=== PATIENT | female | born 1990 | race African-American/Black ===

== ENCOUNTER 2016-08-05 14:30 | Inpatient (IN) | payer OTHER ==
[2016-08-06 14:27] VITALS: BMI 32.2
[2016-08-06] MEDS ORDERED: CITRIC ACID/SODIUM CITRATE 30 ML UNIT-DOSE CUP PO ONE (15:00)
[2016-08-06] MEDS ORDERED: ELECTROLYTE-148 SOLN 1,000 ML IV ONE (15:00)
[2016-08-06] MEDS ORDERED: ONDANSETRON 4 MG/2 ML VIAL IVPB PRN (15:28)
[2016-08-06] MEDS ORDERED: morphine SULFATE/Preservative Free 0.5 MG/ML (1cc Syringe) EP ONE (15:28)
[2016-08-06] MEDS ORDERED: IBUPROFEN 600 MG TABLET (FP) PO PRN (15:28)
--- NOTE | 2016-08-06 15:40 | HP ---
Past Medical History - Primary Care Physician PCP:: Anson Panda - Admission Chief Complaint: 39 weeks, previous c/s of unknwon type , for repeat c /s History of Present Illness: 26 yo f , edc by sono 08/07/16 with previous c/s of unknown type, admitted for repeat c/s rislk of c/s, discussed History Source: Patient Limitations to Obtaining History: No Limitations - Past Medical History ...: 2 ...Para: 1 ...Term: 1 ...LMP: 11/01/15 ... Weeks Gestation by Dates: 39.6 ...EDC by Dates: 08/07/16 ...EDC by Sono: 08/06/16 - Past Surgical History Past Surgical History: Yes: Hx Myomectomy: No Hx Transabdominal Cerclage: No - Smoking History Smoking history: Never smoked Have you smoked in the past 12 months: No - Alcohol/Substance Use Hx Alcohol Use: No - Social History Usual Living Arrangement: Yes: With Spouse History of Recent Travel: No Home Medications - Allergies Allergies/Adverse Reactions: Allergies Allergy/AdvReac Type Severity Reaction Status Date / Time No Known Allergies Allergy Verified 08/06/16 14:30 - Home Medications Home Medications: Ambulatory Orders Vit/Iron Fumarate/FA [ Tablet] 1 each PO DAILY 08/06/16 Review of Systems - Review of Systems Constitutional: reports: No Symptoms Eyes: reports: No Symptoms HENT: reports: No Symptoms Neck: reports: No Symptoms Cardiovascular: reports: No Symptoms Respiratory: reports: No Symptoms Gastrointestinal: reports: No Symptoms Genitourinary: reports: No Symptoms Breasts: reports: No Symptoms Reported Musculoskeletal: reports: No Symptoms Integumentary: reports: No Symptoms Neurological: reports: No Symptoms Endocrine: reports: No Symptoms Hematology/Lymphatic: reports: No Symptoms Psychiatric: reports: No Symptoms Physical Exam - Maternity Vital Signs: Vital Signs Temperature 98.0 F 08/06/16 14:20 Pulse Rate 82 08/06/16 14:20 Respiratory Rate 18 08/06/16 14:20 Blood Pressure 127/80 08/06/16 14:20 O2 Sat by Pulse Oximetry (%) Constitutional: Yes: Well Nourished, No Distress, Calm Eyes: Yes: WNL, Conjunctiva Clear, EOM Intact HENT: Yes: WNL, Atraumatic, Normocephalic Neck: Yes: WNL, Supple, Trachea Midline Cardiovascular: Yes: WNL, Regular Rate and Rhythm Breast(s): Yes: WNL - Abdominal Exam/OB Fundal Height: 40 Number of Fetuses: Single Presentation: Vertex Contractions: Yes Regularity: Irregular Intensity: Unaware Monitor Mode: External Heart Rate Location: [facility] Category: I Accelerations: Uniform Decelerations: None - Vaginal Exam/OB Vaginal Bleediing: No Speculum Exam: No Dilatation (cm): closed Effacement (%): 0 Amniotic Membrane Status: Intact Presentation: Vertex/Position Station: -3 - Physical Exam Musculoskeletal: Yes: WNL Extremities: Yes: WNL Edema: LLE: Trace, RLE: Trace Deep Tendon Reflex Grade: Normal +2 ...Motor Strength: WNL Psychiatric: Yes: WNL Hemorrhage Risk Assessment - Risk Factors Medium Risk Factors: Yes: Prior , uterine surgery,or multiple laparotomies Risk Score: 1 Risk Level: Medium Risk Problem List - Problems (1) with 39 completed weeks gestation Code(s): Z3A.39 - 39 WEEKS GESTATION OF (2) Previous delivery affecting , antepartum Code(s): O34.21 - MATERNAL CARE FOR SCAR FROM PREVIOUS * DO NOT USE * Assessment/Plan repeat c/s , rba discussed
[2016-08-06] MEDS ORDERED: IBUPROFEN 800 MG/8 ML IJ IVPB PRN (16:22)
[2016-08-06] MEDS ORDERED: WITCH HAZEL 50% (TUCKS) 40 PAD/JAR PAD TP PRN (16:22)
[2016-08-06] MEDS ORDERED: METHYLERGONOVINE MALEATE 0.2 MG/1 ML AMP IM PRN (16:22)
[2016-08-06] MEDS ORDERED: BENZOCAINE 20% 57 GM BOTTLE TP PRN (16:22)
[2016-08-06] MEDS ORDERED: diphenhydrAMINE HCL 25 MG CAPSULE (FP) PO PRN (16:22)
[2016-08-06] MEDS ORDERED: BENZOCAINE 28 GM HEMORRHOIDAL OINTMENT PR PRN (16:22)
[2016-08-06] MEDS ORDERED: oxyCODONE HCL 5 MG TABLET PO PRN (16:22)
[2016-08-06] MEDS ORDERED: DEXTROSE 5%-LACTATED RINGERS 1,000 ML IV SCH (16:30)
[2016-08-06] MEDS: OXYTOCIN 20 UNITS in 0.9% NS 1,000 ML IV SCH ×2 (17:00→23:18)
[2016-08-06] MEDS ORDERED: CEFAZOLIN (PRE-DOCKED) 50 ML IVPB SCH (18:00)
[2016-08-06] MEDS: CEFAZOLIN (PRE-DOCKED) 50 ML IVPB SCH (23:12)
[2016-08-07] MEDS: CEFAZOLIN (PRE-DOCKED) 50 ML IVPB SCH (06:32)
[2016-08-07 08:40] LABS: BASOPHIL 0.7 % (0-2.0); EOSINOPHIL 0.2 % (0-4.5); MCH 29.8 pg (25.7-33.7); MCHC 33.9 g/dl (32.0-36.0); MEAN CELL VOLUME 87.7 fl (80-96); MEAN PLT VOLUME 8.4 fl (7.5-11.1); NEUTROPHILS 69.9 % (42.8-82.8); PLATELET COUNT 191 K/MM3 (134-434); RDW 17.2 % (11.6-15.6); WHITE BLOOD COUNT 9.3 K/mm3 (4.0-10.0)
[2016-08-07] MEDS: ENOXAPARIN NA (PORCINE) 40 MG/0.4 ML DISP.SYRIN SQ SCH (09:04)
[2016-08-07] MEDS: SIMETHICONE 80 MG TAB.CHEW (FP) PO PRN ×3 (09:40→21:30)
[2016-08-07] MEDS: ACETAMINOPHEN 325 MG TABLET (FP) PO PRN ×3 (09:40→21:21)
[2016-08-07] MEDS: oxyCODONE HCL 5 MG TABLET PO PRN ×3 (09:41→21:22)
--- NOTE | 2016-08-07 10:32 | PN ---
Post Progress Note - Subjective Subjective: no c/o pain solano removed, not voided yet Post Day: 1 Type of Delivery: Repeat C/S Vital Signs: Vital Signs Temperature 98.7 F 08/07/16 06:00 Pulse Rate 92 H 08/07/16 06:00 Respiratory Rate 20 08/07/16 07:00 Blood Pressure 98/56 08/07/16 06:00 O2 Sat by Pulse Oximetry (%) 99 08/06/16 16:50 Breast Exam: Yes: Soft, Other (BF ). No: Engorged Uterus: Yes: Fundus Firm, Fundus below umbilicus, Non-tender Incision: Yes: Dressing dry and intact. No: Redness, Oozing Abdomen/GI: Yes: Abdomen soft, Tolerating PO (clear liquids ). No: Abdominal Distention, Tender, Passing flatus Lochia, amount: Moderate Extremities: Yes: Calves non-tender Perineum: Yes: Intact Activity: Other (sitting in chair ) - Labs Labs: CBC WBC 9.3 K/mm3 (4.0-10.0) D 08/07/16 07:30 RBC 4.04 M/mm3 (3.60-5.2) 08/07/16 07:30 Hgb 12.0 GM/dL (10.7-15.3) 08/07/16 07:30 Hct 35.5 % (32.4-45.2) 08/07/16 07:30 MCV 87.7 fl (80-96) 08/07/16 07:30 MCHC 33.9 g/dl (32.0-36.0) 08/07/16 07:30 RDW 17.2 % (11.6-15.6) H 08/07/16 07:30 Plt Count 191 K/MM3 (134-434) 08/07/16 07:30 MPV 8.4 fl (7.5-11.1) 08/07/16 07:30 Neutrophils % 69.9 % (42.8-82.8) 08/07/16 07:30 Lymphocytes % 20.7 % (8-40) D 08/07/16 07:30 Monocytes % 8.5 % (3.8-10.2) 08/07/16 07:30 Eosinophils % 0.2 % (0-4.5) 08/07/16 07:30 Basophils % 0.7 % (0-2.0) 08/07/16 07:30 Assessment/Plan stable. . encourage ambulation & po fluids
--- NOTE | 2016-08-07 11:04 | PN ---
Progress Note (short form) - Note Progress Note: POD #1 - s/p under spinal anesthesia with duramorph. Pt. doing well, sitting up comfortably in chair nursing baby. No complaints. Good pain control. No apparent anesthetic complications noted. Continue current care.
[2016-08-07] MEDS ORDERED: BISACODYL 10 MG SUPP.RECT RC PRN (16:22)
[2016-08-08] MEDS: SIMETHICONE 80 MG TAB.CHEW (FP) PO PRN ×3 (04:43→21:30)
[2016-08-08] MEDS: ACETAMINOPHEN 325 MG TABLET (FP) PO PRN ×3 (04:43→21:30)
[2016-08-08] MEDS: oxyCODONE HCL 5 MG TABLET PO PRN ×3 (04:44→21:31)
[2016-08-08] MEDS: ENOXAPARIN NA (PORCINE) 40 MG/0.4 ML DISP.SYRIN SQ SCH (09:08)
--- NOTE | 2016-08-08 12:47 | PN ---
Post Progress Note - Subjective Subjective: no complains . voiding without dificulty Post Day: 2 Type of Delivery: Repeat C/S Vital Signs: Vital Signs Temperature 97.9 F 08/08/16 09:24 Pulse Rate 75 08/08/16 09:24 Respiratory Rate 18 08/08/16 09:24 Blood Pressure 102/55 08/08/16 09:24 O2 Sat by Pulse Oximetry (%) 99 08/08/16 09:00 Breast Exam: Yes: Soft, Other (BF ). No: Engorged Uterus: Yes: Fundus Firm, Fundus below umbilicus, Non-tender Incision: Yes: Dressing dry and intact (to be changed ). No: Redness, Oozing Abdomen/GI: Yes: Abdomen soft, Passing flatus, Tolerating PO (diet). No: Abdominal Distention, Tender Lochia: Yes: Rubra Lochia, amount: Moderate Extremities: Yes: Calves non-tender Perineum: Yes: Intact Activity: Ambulating - Labs Labs: CBC WBC 9.3 K/mm3 (4.0-10.0) D 08/07/16 07:30 RBC 4.04 M/mm3 (3.60-5.2) 08/07/16 07:30 Hgb 12.0 GM/dL (10.7-15.3) 08/07/16 07:30 Hct 35.5 % (32.4-45.2) 08/07/16 07:30 MCV 87.7 fl (80-96) 08/07/16 07:30 MCHC 33.9 g/dl (32.0-36.0) 08/07/16 07:30 RDW 17.2 % (11.6-15.6) H 08/07/16 07:30 Plt Count 191 K/MM3 (134-434) 08/07/16 07:30 MPV 8.4 fl (7.5-11.1) 08/07/16 07:30 Neutrophils % 69.9 % (42.8-82.8) 08/07/16 07:30 Lymphocytes % 20.7 % (8-40) D 08/07/16 07:30 Monocytes % 8.5 % (3.8-10.2) 08/07/16 07:30 Eosinophils % 0.2 % (0-4.5) 08/07/16 07:30 Basophils % 0.7 % (0-2.0) 08/07/16 07:30 Assessment/Plan stable. plan ct po care
[2016-08-08] MEDS: SENNOSIDES/DOCUSATE COMBO (SENNA PLUS) TABLET (UD) PO PRN (21:31)
[2016-08-09] MEDS: SIMETHICONE 80 MG TAB.CHEW (FP) PO PRN ×3 (02:59→22:17)
[2016-08-09] MEDS: oxyCODONE HCL 5 MG TABLET PO PRN ×2 (02:59→09:57)
[2016-08-09] MEDS: ACETAMINOPHEN 325 MG TABLET (FP) PO PRN ×3 (03:00→22:21)
--- NOTE | 2016-08-09 06:54 | SURG ---
Surgery Communications Professor Note Communications Professor: Rob Ordoñez PA-C Date of Service: 08/06/16 Diagnosis: 39 weeks gestation Procedure: Repeat section I was present for the entirety of the operative procedure. For further detail, please refer to operative report. Visit type - Case Type Case Type: Scheduled Admission - New patient This patient is new to me today: Yes Date on this admission: 08/09/16
[2016-08-09 07:52] LABS: BASOPHIL 0.4 % (0-2.0); EOSINOPHIL 1.7 % (0-4.5); MCH 30.6 pg (25.7-33.7); MCHC 34.7 g/dl (32.0-36.0); MEAN CELL VOLUME 88.3 fl (80-96); MEAN PLT VOLUME 8.1 fl (7.5-11.1); NEUTROPHILS 59.1 % (42.8-82.8); PLATELET COUNT 216 K/MM3 (134-434); RDW 16.9 % (11.6-15.6); WHITE BLOOD COUNT 7.2 K/mm3 (4.0-10.0)
--- NOTE | 2016-08-09 07:55 | PN ---
Post Progress Note - Subjective Subjective: c/o pain scale 3-4 feels better after suppository taken yesterday . voiding without difficulty Post Day: 3 Type of Delivery: Repeat C/S Vital Signs: Vital Signs Temperature 98.3 F 08/08/16 20:44 Pulse Rate 91 H 08/08/16 20:44 Respiratory Rate 20 08/08/16 20:44 Blood Pressure 105/58 08/08/16 20:44 O2 Sat by Pulse Oximetry (%) 99 08/08/16 09:00 Breast Exam: Yes: Soft, Other (BF ). No: Engorged Uterus: Yes: Fundus Firm, Fundus below umbilicus, Non-tender Incision: Yes: Sutures intact. No: Redness, Oozing Abdomen/GI: Yes: Abdomen soft, Passing flatus (bm done ), Tolerating PO (diet ) . No: Abdominal Distention, Tender Lochia: Yes: Rubra Lochia, amount: Moderate Extremities: Yes: Calves non-tender Perineum: Yes: Intact Activity: Ambulating - Labs Labs: CBC WBC 9.3 K/mm3 (4.0-10.0) D 08/07/16 07:30 RBC 4.04 M/mm3 (3.60-5.2) 08/07/16 07:30 Hgb 12.0 GM/dL (10.7-15.3) 08/07/16 07:30 Hct 35.5 % (32.4-45.2) 08/07/16 07:30 MCV 87.7 fl (80-96) 08/07/16 07:30 MCHC 33.9 g/dl (32.0-36.0) 08/07/16 07:30 RDW 17.2 % (11.6-15.6) H 08/07/16 07:30 Plt Count 191 K/MM3 (134-434) 08/07/16 07:30 MPV 8.4 fl (7.5-11.1) 08/07/16 07:30 Neutrophils % 69.9 % (42.8-82.8) 08/07/16 07:30 Lymphocytes % 20.7 % (8-40) D 08/07/16 07:30 Monocytes % 8.5 % (3.8-10.2) 08/07/16 07:30 Eosinophils % 0.2 % (0-4.5) 08/07/16 07:30 Basophils % 0.7 % (0-2.0) 08/07/16 07:30 Assessment/Plan stable. plan ct po care
[2016-08-09] MEDS: IBUPROFEN 600 MG TABLET (FP) PO PRN ×2 (09:56→22:17)
[2016-08-09] MEDS: ENOXAPARIN NA (PORCINE) 40 MG/0.4 ML DISP.SYRIN SQ SCH (10:40)
[2016-08-09] MEDS: SENNOSIDES/DOCUSATE COMBO (SENNA PLUS) TABLET (UD) PO PRN (22:22)
--- NOTE | 2016-08-10 09:10 | PN ---
Post Progress Note - Subjective Subjective: Doing well, no complaints. Ambulating, voiding, tolerating regular diet, passing flatus, denies N/V/SOB/CP. Type of Delivery: Repeat C/S Vital Signs: Vital Signs Temperature 98.4 F 08/09/16 22:00 Pulse Rate 68 08/09/16 22:00 Respiratory Rate 18 08/09/16 22:00 Blood Pressure 103/63 08/09/16 22:00 O2 Sat by Pulse Oximetry (%) 99 08/08/16 09:00 Breast Exam: Yes: Soft Uterus: Yes: Fundus Firm, Fundus below umbilicus Incision: Yes: Sutures intact, Other (Steri strips in place) Abdomen/GI: Yes: Abdomen soft, Passing flatus Lochia: Yes: Rubra Lochia, amount: Small Extremities: Yes: Calves non-tender Activity: Ambulating - Labs Labs: CBC WBC 7.2 K/mm3 (4.0-10.0) 08/09/16 06:50 RBC 3.86 M/mm3 (3.60-5.2) 08/09/16 06:50 Hgb 11.8 GM/dL (10.7-15.3) 08/09/16 06:50 Hct 34.1 % (32.4-45.2) 08/09/16 06:50 MCV 88.3 fl (80-96) 08/09/16 06:50 MCHC 34.7 g/dl (32.0-36.0) 08/09/16 06:50 RDW 16.9 % (11.6-15.6) H 08/09/16 06:50 Plt Count 216 K/MM3 (134-434) 08/09/16 06:50 MPV 8.1 fl (7.5-11.1) 08/09/16 06:50 Neutrophils % 59.1 % (42.8-82.8) 08/09/16 06:50 Lymphocytes % 30.8 % (8-40) D 08/09/16 06:50 Monocytes % 8.0 % (3.8-10.2) 08/09/16 06:50 Eosinophils % 1.7 % (0-4.5) D 08/09/16 06:50 Basophils % 0.4 % (0-2.0) 08/09/16 06:50 Assessment/Plan 26yo POD#4 s/p R C/S, doing well. VSS. AF, Hct stable -Routine postop care -Regular diet -Encourage ambulation -PO pain medication -d/c home -f/u in 2 weeks
[2016-08-10] MEDS: ENOXAPARIN NA (PORCINE) 40 MG/0.4 ML DISP.SYRIN SQ SCH (09:38)
[2016-08-10 10:42] VITALS: BP 124/69; PULSE 89; TEMP 98
--- NOTE | 2016-08-10 16:26 | DS ---
Physical Exam-ASSEMBLER FLEXIBLE LEADS Vital Signs: Vital Signs Temperature 98 F 08/10/16 10:00 Pulse Rate 89 08/10/16 10:00 Respiratory Rate 18 08/10/16 10:00 Blood Pressure 124/69 08/10/16 10:00 O2 Sat by Pulse Oximetry (%) 99 08/08/16 09:00 Constitutional: Yes: Well Nourished, No Distress, Calm Eyes: Yes: WNL, Conjunctiva Clear, EOM Intact HENT: Yes: WNL, Atraumatic, Normocephalic Neck: Yes: WNL, Supple, Trachea Midline Cardiovascular: Yes: WNL, Regular Rate and Rhythm Respiratory: Yes: WNL, Regular, CTA Bilaterally Gastrointestinal: Yes: WNL ...Rectal Exam: Yes: WNL Renal/: Yes: WNL ....Post : Yes: Uterus firm, Uterus non-tender, Slight lochia rubra Breast(s): Yes: WNL Musculoskeletal: Yes: WNL Extremities: Yes: WNL Edema: No Integumentary: Yes: WNL Wound/Incision: Yes: Clean/Dry, Well Approximated, Abel Removed Neurological: Yes: WNL, Alert, Oriented ...Motor Strength: WNL Psychiatric: Yes: WNL, Alert, Oriented Labs: CBC, BMP 08/09/16 06:50 Delivery - Delivery Section: Repeat, Low Flap Transverse (no complication) Type of Anesthesia: Spinal EBL (cc): 500 Delivery, Single - Stages of Labor Date of Delivery: 08/06/16 Time of Delivery: 15:59 Time Placenta Delivered: 16:00 Placenta: Yes: Expressed - Condition of Bankruptcy Processor/Applications Specialist Present: Yes Name: Brit Haider Infant Gender: Female Weight: 8 lb 1 oz Position: Right, OT Total Hours ROM (Hrs/Mins): 1M - 1 Minute Total Score: 9 5 Minutes Total Score: 9 - Feeding Plan Initial Plan: Elected not to breastfeed exclusively throughout hospitalization Discharge Summary Reason For Visit: C SECTION Procedures: Principal: repeat LST c/s Condition: Good - Instructions Diet, Activity, Other Instructions: Post Instructions DIET: Continue good diet high in protein, calcium, and iron rich foods. Drink at least eight (8) glasses of water daily in addition to other fluids. ___ Regular diet MEDICATIONS: Continue vitamins and iron as previously directed. Motrin and Tylenol may be taken for minor discomfort. ACTIVITY: Mild to moderate exercise may be started in two (2) weeks. Take frequent rest periods. Resume normal activity after six (6) week check up. WOUND CARE OF OPERATIVE SITE: Continue use of perineal bottle until vaginal discharge stops. Keep area clean. Shower daily. Keep abdominal wound dry. Report any drainage or redness to physician. Tub baths, tampons and douches are not permitted for 6 weeks. __x__ Breast feeding __x_ Bottle feeding BREAST CARE: (For those that are not ): If engorgement occurs: Wear tight fitting bra. Take Tylenol or Motrin for pain. Apply cold packs (ice in bags to each breast ) FAMILY PLANNING: There are many control alternatives to pursue and they should be discussed at your first office visit. You may resume sexual activity after your six (6) week check up. (Remember, is not a contraceptive) NEXT PHYSICIAN APPOINTMENT: Be certain to call for a [address] Panda for an incision check and a six (6) week appointment. Call Clinic or got to Emergency Dept if you have any of the following: Heavy vaginal bleeding Painful urination Leg pain Unusual odor noted to vaginal bleeding High fever Red streaking noted on breast Referrals: Anson Panda MD [Staff Physician] - Disposition: HOME - Home Medications Comprehensive Discharge Medication List: Ambulatory Orders Vit/Iron Fumarate/FA [ Tablet] 1 each PO DAILY 08/06/16 Ibuprofen [Motrin -] 600 mg PO QID #28 tablet 08/10/16
--- NOTE | 2016-08-10 22:53 | OP ---
DATE OF OPERATION: 08/06/2016 PREOPERATIVE DIAGNOSIS: 39+ weeks' gestation. Previous section of unknown type, request of section. POSTOPERATIVE DIAGNOSIS: 39+ weeks' gestation. Previous section of unknown type, request of section. PROCEDURE: Repeat low segment transverse section. SURGEON: Anson Gunn M.D. STAFF ELECTRICAL ENGINEER: Shannon Barreto ANESTHESIA: Spinal. ESTIMATED BLOOD LOSS: 500 mL. OPERATION: Patient was taken to operating room with adequate spinal anesthesia. Abdomen and perineum were prepped and draped. Pfannenstiel abdominal skin incision was made over the previous incision. Abdominal wall was cut layer by layer until the peritoneum was exposed and incised. Upon entering the abdominal cavity, the lower uterine segment was identified, and uterovesical fold of the peritoneum was established. The bladder was pushed down. Then with the lower blade of the [place] retractor in the pelvis, a low transverse uterine incision was made. The incision extended laterally. Amniotic sac was entered. Head delivered. Nasopharynx was suctioned. A live baby was delivered without any difficulty. Placenta was delivered manually. Uterine cavity was cleaned of all remaining tissue. Uterine incision was closed in 2 layers, the 1st layer with 0 Biosyn continuous suture, the 2nd layer with 0 Biosyn imbricating the 1st layer. Bladder flap was closed with 0 Biosyn continuous suture. Both tubes and ovaries were checked and were normal. No active bleeding was seen. All the lap, sponge, and instrument counts were correct. Pelvic at this time was irrigated, and then peritoneum was closed with continuous suture of 0 Biosyn. Muscles were brought together interrupted suture with 0 Biosyn. Fascia was closed with 0 Biosyn continuous sutures. Subcutaneous fat interrupted sutures 0 Biosyn, and the skin was closed with 4-0 Biosyn subcuticular continuous suture. The patient tolerated the procedure well and left the OR in good condition. ANSON GUNN M.D. [id number]
--- NOTE | 2016-08-13 09:47 | PATH ---
Surgical Pathology Report Patient Name: WILLEM MCKAY [facility]. Rec. #: [id number] /Age/Gender: 1990 (Age: 26) / F Account: [id number] Location: [facility] OBS/PROFESSOR OF LEGAL STUDIES Taken: 08/08/2016 Received: 08/09/2016 Reported: 08/13/2016 Physicians: Anson Panda M.D. Specimen(s) Received PLACENTA Clinical History Previous c/section C/section Final Diagnosis PLACENTA, DELIVERY: FOCALLY DISRUPTED THIRD TRIMESTER PLACENTA WITH MILD INCREASE IN PREVILLOUS, PERIVILLOUS, AND PRECHORIONIC FIBRIN DEPOSITION, FOCAL CALCIFICATION,THREE VESSEL UMBILICAL CORD, AND PLACENTAL MEMBRANES WITH FOCAL AMNION HYPERPLASIA. Electronically Signed Dallas Johns M.D. Gross Description The specimen is received fresh, labeled "placenta" and is a 666 gram, 20.5 x 16.0 x 3.0 cm placenta with attached membranes and umbilical cord. The attached membranes are noyola, translucent with focal opacities and insert marginally. The umbilical cord measures 41 cm in length and averages 1.3 cm in diameter. The cord inserts eccentrically, 5 cm. to the nearest margin. No true knots or strictures are identified. Cut surface of the umbilical cord reveals 3 vessels. The surface is birch-blue with fibrin deposition and appropriate caliber vessels. The maternal surface is red-brown with focal defects. Sectioning reveals red-brown, spongy parenchyma. No focal lesions are identified. Special Ed Assistant sections are submitted in three cassettes as follows: 1- membrane rolls and umbilical cord; 1-5-rmjiljmkeihxte sections of placenta. 08/11/201608/11/2016
== END 2016-08-10 13:00 | disposition home or self-care (01) | DRG 540 ==
LOC: JLDR 08-06 13:40 → J3W 08-06 18:00
PROVIDERS: ADMIT Obstetrics & Gynecology; ATTEND Obstetrics & Gynecology
PROC: 10D00Z1 Extraction of Products of Conception, Low, Open Approach (ICD-10-PCS; principal; 2016-08-06)
DX: O34.211 Maternal care for low transverse scar from previous cesarean delivery (principal); Z3A.39 39 weeks gestation of pregnancy; Z37.0 Single live birth
CPT/HCPCS: 36415; 85025; 88307-TC

== ENCOUNTER 2019-09-13 12:50 | Inpatient (IN) | payer OTHER ==
[2019-09-13] MEDS ORDERED: CITRIC ACID/SODIUM CITRATE 30 ML UNIT-DOSE CUP PO ONE (13:23)
[2019-09-13] MEDS ORDERED: LACTATED RINGERS SOLUTION 1,000 ML/1,000 ML INFUS.BAG IV SCH (13:30)
[2019-09-13 14:19] VITALS: BMI 36.7
[2019-09-13] MEDS ORDERED: OXYTOCIN 20 UNITS in 0.9% NS 20 UNIT/1,000 ML INFUS.BAG IV ONE (14:33)
[2019-09-13] MEDS ORDERED: morphine SULFATE/PF 0.5 MG/ML (2cc Syringe - QUVA) ONE (14:34)
--- NOTE | 2019-09-13 14:34 | HP ---
Past Medical History - Primary Care Physician PCP:: Anson Panda - Admission Chief Complaint: 39 weeks, previous c/s , for repeat c/s History of Present Illness: 29 yo f with 2 previous c/s 39 weeks, requesting repeat c/s , cx closed , vx -3 mr , clear , fhr cat 1, no contraction. risks associated with repeat c/s discussed , declined BTL History Source: Patient Limitations to Obtaining History: No Limitations - Past Medical History ...: 3 ...Para: 2 ...Term: 2 ...: 0 ...Spon : 0 ...Induced : 0 ...Multiple Gestation: 0 ...LMP: 12/14/18 ... Weeks Gestation by Dates: 39.0 ...EDC by Dates: 09/20/19 ...EDC by Sono: 09/17/19 - Past Surgical History Past Surgical History: Yes: Hx Myomectomy: No Hx Transabdominal Cerclage: No - Smoking History Smoking history: Never smoked Have you smoked in the past 12 months: No - Alcohol/Substance Use Hx Alcohol Use: No - Social History Usual Living Arrangement: Yes: With Spouse History of Recent Travel: No Home Medications - Allergies Allergies/Adverse Reactions: Allergies Allergy/AdvReac Type Severity Reaction Status Date / Time No Known Allergies Allergy Verified 09/13/19 13:31 - Home Medications Home Medications: Ambulatory Orders Vit/Iron Fum/Folic AC [ Tablet] 1 each PO DAILY 08/06/16 Review of Systems - Review of Systems Constitutional: reports: No Symptoms Eyes: reports: No Symptoms HENT: reports: No Symptoms Neck: reports: No Symptoms Cardiovascular: reports: No Symptoms Respiratory: reports: No Symptoms Gastrointestinal: reports: No Symptoms Genitourinary: reports: No Symptoms Breasts: reports: No Symptoms Reported Musculoskeletal: reports: No Symptoms Integumentary: reports: No Symptoms Neurological: reports: No Symptoms Endocrine: reports: No Symptoms Hematology/Lymphatic: reports: No Symptoms Psychiatric: reports: No Symptoms Physical Exam - Maternity Vital Signs: Vital Signs Temperature 98.4 F 09/13/19 13:25 Pulse Rate 106 H 09/13/19 13:25 Respiratory Rate 20 09/13/19 13:25 Blood Pressure 114/71 09/13/19 13:25 O2 Sat by Pulse Oximetry (%) Constitutional: Yes: Well Nourished, Obese Eyes: Yes: WNL HENT: Yes: WNL Neck: Yes: WNL Cardiovascular: Yes: WNL Breast(s): Yes: WNL - Abdominal Exam/OB Fundal Height: 40 Number of Fetuses: Single Presentation: Vertex Contractions: Yes Regularity: Irregular Intensity: Unaware Monitor Mode: External Heart Rate Location: [facility] Category: I Accelerations: Non-Uniform Decelerations: None - Vaginal Exam/OB Vaginal Bleediing: No Speculum Exam: No Dilatation (cm): closed Effacement (%): 0 Amniotic Membrane Status: Ruptured Nitrazine Test: Positive Amniotic Fluid: Yes: Clear Presentation: Vertex/Position Station: -3 - Physical Exam Musculoskeletal: Yes: WNL Edema: LLE: Trace, RLE: Trace Integumentary: Yes: WNL Deep Tendon Reflex Grade: Normal +2 ...Motor Strength: WNL Psychiatric: Yes: WNL Hemorrhage Risk Assessment - Risk Factors Medium Risk Factors: Yes: Prior , uterine surgery,or multiple laparotomies Risk Score: 1 Risk Level: Medium Risk Problem List - Problems (1) with 39 completed weeks gestation Code(s): Z3A.39 - 39 WEEKS GESTATION OF (2) Previous section complicating Code(s): O34.219 - MATERNAL CARE FOR UNSP TYPE SCAR FROM PREVIOUS DEL (3) Previous section complicating Code(s): O34.219 - MATERNAL CARE FOR UNSP TYPE SCAR FROM PREVIOUS DEL (4) Obesity complicating childbirth Code(s): O99.214 - OBESITY COMPLICATING CHILDBIRTH Assessment/Plan admit for repeat c/s, risks discussed
[2019-09-13] MEDS ORDERED: ePHEDrine SULFATE 50 MG/1 ML AMPULE ONE (14:56)
[2019-09-13] MEDS ORDERED: ceFAZolin SODIUM 1 GM VIAL ONE (14:58)
[2019-09-13] MEDS ORDERED: PHENYLEPHRINE HCL 10 MG/1 ML SINGLE DOSE VIAL ONE (15:00)
[2019-09-13] MEDS ORDERED: BENZOCAINE 20% 57 GM BOTTLE TP PRN (15:55)
[2019-09-13] MEDS ORDERED: WITCH HAZEL 50% (TUCKS) 40 PAD/JAR PAD TP PRN (15:55)
[2019-09-13] MEDS ORDERED: oxyCODONE HCL 5 MG TABLET PO PRN (15:55)
[2019-09-13] MEDS ORDERED: diphenhydrAMINE HCL 25 MG CAPSULE (FP) PO PRN (15:55)
[2019-09-13] MEDS ORDERED: BENZOCAINE 28 GM HEMORRHOIDAL OINTMENT RC PRN (15:55)
[2019-09-13] MEDS ORDERED: METHYLERGONOVINE MALEATE 0.2 MG/1 ML AMP IM PRN (15:55)
[2019-09-13] MEDS ORDERED: OXYTOCIN 20 UNITS in 0.9% NS 20 UNIT/1,000 ML INFUS.BAG IV SCH (16:00)
[2019-09-13] MEDS ORDERED: DEXTROSE 5%-LACTATED RINGERS 1,000 ML IV SCH (16:00)
--- NOTE | 2019-09-13 16:01 | OP ---
Operative Note - Note: Operative Date: 09/13/19 Pre-Operative Diagnosis: 39 weeks , previous c/s Operation: repeat LST c/s Findings: live baby boy, 9/9, ROT, cord around neck once Surgeon: Anson Panda Php Mysql Developer: Ze Buckner Anesthesia: Spinal Specimens Removed: placenta Estimated Blood Loss (mls): 500 Drains & Tubes with Location: [place] Drains, Volume Out (mls): 100 Operative Report Dictated: Yes
[2019-09-13] MEDS ORDERED: ONDANSETRON 4 MG/2 ML VIAL IVPUSH PRN (16:41)
[2019-09-13] MEDS: IBUPROFEN 800 MG/8 ML IJ IVPB PRN (16:50)
[2019-09-13] MEDS ORDERED: IBUPROFEN 800 MG/8 ML IJ IVPB ONE (16:51)
--- NOTE | 2019-09-13 17:53 | OP ---
DATE OF OPERATION: 09/13/2019 PREOPERATIVE DIAGNOSIS: 39 weeks, previous section, request of repeat section. POSTOPERATIVE DIAGNOSIS: 39 weeks, previous section, request of repeat section. PROCEDURE: Repeat low segment transverse section. SURGEON: Manuel Gunn MD. FOUNDATION ASSISTANT: WILDA Carballo. ANESTHESIA: Spinal. ANESTHESIOLOGIST: Lindsey Smith DO. ESTIMATED BLOOD LOSS: 500 mL. FINDINGS: Live baby boy, ROT position, cord around the neck x2, Apgars 9 and 9, estimated blood loss 500 mL. OPERATION: Patient was taken to operating room with adequate epidural anesthesia. Abdomen and perineum were prepped and draped. Pfannenstiel abdominal skin incision was made. Abdominal wall was cut layer by layer until the peritoneum was exposed and incised. Upon entering the abdominal cavity, the lower uterine segment was identified, and uterovesical fold of the peritoneum was established. The bladder was pushed down. Then with the lower blade of the [place] retractor in the pelvis, a low transverse uterine incision was made. The incision extended laterally. Amniotic sac was entered. Clear fluid. Head delivered. Nasopharynx was suctioned. A live baby boy was delivered. Placenta was delivered manually. Uterine cavity was cleared of all remaining tissue. Uterine incision was closed in 2 layers, the 1st layer with 0 Biosyn continuous suture, the 2nd layer with 0 Biosyn imbricating the 1st layer. Bladder flap was closed with 0 Biosyn continuous suture. Both tubes and ovaries were checked and were normal. No active bleeding was seen. All the lap, sponge, and instrument counts were correct. Peritoneum was closed with 0 Biosyn continuous suture. Muscles were brought together interrupted suture with 0 Biosyn. Fascia was closed with 0 Biosyn continuous sutures. Subcutaneous fat with interrupted sutures 0 Biosyn, and the skin was closed with nona. The patient tolerated the procedure well and left the OR in good condition. MANUEL GUNN M.D. /[id number]
[2019-09-13] MEDS: CEFAZOLIN 1 GM/D5W 1 GM/50 ML BAG IVPB SCH (21:47)
[2019-09-14] MEDS: CEFAZOLIN 1 GM/D5W 1 GM/50 ML BAG IVPB SCH (05:54)
[2019-09-14] MEDS: IBUPROFEN 800 MG/8 ML IJ IVPB PRN (06:29)
--- NOTE | 2019-09-14 06:39 | PN ---
Progress Note (short form) - Note Progress Note: pod 1 , no c/o , no excess vaginal bleeding Last Vital Signs Temp Pulse Resp BP Pulse Ox 99.2 F 105 H 20 132/75 97 09/14/19 05:30 09/14/19 05:30 09/14/19 06:00 09/14/19 05:30 09/13/19 17:00 abdomen soft, no distension , no cva incision dry, clean no calf tenderness no excess vaginal bleeding plan ambulate , cbc pain management advance diet Problem List - Problems (1) with 39 completed weeks gestation Code(s): Z3A.39 - 39 WEEKS GESTATION OF (2) Previous section complicating Code(s): O34.219 - MATERNAL CARE FOR UNSP TYPE SCAR FROM PREVIOUS DEL (3) Previous section complicating Code(s): O34.219 - MATERNAL CARE FOR UNSP TYPE SCAR FROM PREVIOUS DEL (4) Obesity complicating childbirth Code(s): O99.214 - OBESITY COMPLICATING CHILDBIRTH
[2019-09-14 07:29] LABS: BASO % 0.5 % (0-2.0); EOS % 1.1 % (0-4.5); HEMOGLOBIN 11.7 GM/dL (10.7-15.3); LYMPH % 13.5 % (8-40); MCH 31.6 pg (25.7-33.7); MCHC 34.4 g/dl (32.0-36.0); MEAN CELL VOLUME 91.9 fl (80-96); MEAN PLT VOLUME 8.2 fl (7.5-11.1); MONO % 12.7 % (3.8-10.2); NEUT % 72.2 % (42.8-82.8); PLATELET COUNT 212 K/MM3 (134-434); RDW 14.4 % (11.6-15.6)
[2019-09-14] MEDS: ENOXAPARIN NA (PORCINE) 40 MG/0.4 ML DISP.SYRIN SQ SCH (10:17)
[2019-09-14] MEDS: IBUPROFEN 600 MG TABLET (FP) PO PRN ×2 (14:18→22:07)
[2019-09-14] MEDS: ACETAMINOPHEN 325 MG TABLET (FP) PO PRN ×2 (14:19→22:08)
[2019-09-14] MEDS: SIMETHICONE 80 MG TAB.CHEW (FP) PO PRN ×2 (14:20→22:08)
[2019-09-14] MEDS ORDERED: BISACODYL 10 MG SUPP.RECT RC PRN (15:55)
[2019-09-15] MEDS: IBUPROFEN 600 MG TABLET (FP) PO PRN ×3 (08:38→20:23)
[2019-09-15] MEDS: SIMETHICONE 80 MG TAB.CHEW (FP) PO PRN ×3 (08:38→20:23)
[2019-09-15] MEDS: ACETAMINOPHEN 325 MG TABLET (FP) PO PRN ×2 (08:39→12:01)
--- NOTE | 2019-09-15 09:02 | PN ---
Post Progress Note - Subjective Subjective: mabulating, breast feeding, lochia decreased, tolerating PO, voiding Post Day: 2 Type of Delivery: Repeat C/S Vital Signs: Vital Signs Temperature 98.6 F 09/14/19 22:20 Pulse Rate 90 09/14/19 22:20 Respiratory Rate 20 09/14/19 22:20 Blood Pressure 120/73 09/14/19 22:20 O2 Sat by Pulse Oximetry (%) 97 09/13/19 17:00 Breast Exam: Yes: Other Uterus: Yes: Fundus Firm Incision: Yes: Dressing dry and intact, Abel intact Abdomen/GI: Yes: Abdomen soft Lochia, amount: Moderate Extremities: Yes: Calves non-tender Perineum: Yes: Intact Activity: Ambulating - Labs Labs: CBC WBC 8.0 K/mm3 (4.0-10.0) 09/14/19 07:05 RBC 3.70 M/mm3 (3.60-5.2) 09/14/19 07:05 Hgb 11.7 GM/dL (10.7-15.3) 09/14/19 07:05 Hct 34.0 % (32.4-45.2) 09/14/19 07:05 MCV 91.9 fl (80-96) 09/14/19 07:05 MCH 31.6 pg (25.7-33.7) 09/14/19 07:05 MCHC 34.4 g/dl (32.0-36.0) 09/14/19 07:05 RDW 14.4 % (11.6-15.6) 09/14/19 07:05 Plt Count 212 K/MM3 (134-434) 09/14/19 07:05 MPV 8.2 fl (7.5-11.1) 09/14/19 07:05 Absolute Neuts (auto) 5.8 K/mm3 (1.5-8.0) 09/14/19 07:05 Neutrophils % 72.2 % (42.8-82.8) D 09/14/19 07:05 Lymphocytes % 13.5 % (8-40) D 09/14/19 07:05 Monocytes % 12.7 % (3.8-10.2) H 09/14/19 07:05 Eosinophils % 1.1 % (0-4.5) 09/14/19 07:05 Basophils % 0.5 % (0-2.0) 09/14/19 07:05 Nucleated RBC % 0 % (0-0) 09/14/19 07:05 Assessment/Plan POD # 2 in stable condition desiring infant's circumcision -continue inpatient care -anticipate D/C home tomorrow
--- NOTE | 2019-09-15 09:07 | DS ---
Physical Examination Vital Signs: Vital Signs As Documented Findings/Remarks: Ambulating, breast feeding, tolerating PO, lochia decreased, voiding. PP/post-op precautions discussed and follow up instructions explained Constitutional: Yes: Well Nourished HENT: Yes: Atraumatic Neck: Yes: Supple Cardiovascular: Yes: Regular Rate and Rhythm Respiratory: Yes: Regular Gastrointestinal: Yes: Normal Bowel Sounds, Soft ...Rectal Exam: Yes: Other Renal/: Yes: Other Breast(s): Yes: Other Musculoskeletal: Yes: Other Extremities: Yes: WNL (No CT), Other Edema: Yes Edema: LLE: Trace, RLE: Trace Integumentary: Yes: WNL Wound/Incision: Yes: Well Approximated Neurological: Yes: Alert, Oriented ...Motor Strength: WNL Psychiatric: Yes: Alert, Oriented Labs: CBC, BMP 09/14/19 07:05 Discharge Summary Problems reviewed: Yes Reason For Visit: C SECTION Current Active Problems Obesity complicating childbirth (Acute) with 39 completed weeks gestation (Acute) Previous section complicating (Acute) Previous section complicating (Acute) Procedures: Principal: section Hospital Course: Uncomplicated Plan of Treatment: FOllow up for incision check Condition: Stable - Instructions Diet, Activity, Other Instructions: Return to regular diet, avoid strenuous activity, follow up with MD within a week for incision check, Call MD with any concerns or problems Referrals: Anson Panda MD [Staff Physician] - Disposition: HOME - Home Medications Comprehensive Discharge Medication List: Ambulatory Orders Vit/Iron Fum/Folic AC [ Tablet] 1 each PO DAILY 08/06/16 Acetaminophen [Tylenol] 650 mg PO Q6H PRN #30 capsule MDD 5 09/15/19 Ibuprofen 600 mg PO Q6H PRN #30 tablet 09/15/19 Oxycodone HCl 5 mg PO Q6H PRN 3 Days #12 tablet MDD 5 09/15/19
[2019-09-15] MEDS: ENOXAPARIN NA (PORCINE) 40 MG/0.4 ML DISP.SYRIN SQ SCH (11:50)
[2019-09-15] MEDS: oxyCODONE HCL 5 MG TABLET PO PRN (20:28)
[2019-09-15] MEDS ORDERED: SENNOSIDES/DOCUSATE COMBO (SENNA PLUS) TABLET (UD) PO PRN (22:00)
[2019-09-15 22:05] VITALS: TEMP 98.3
[2019-09-16] MEDS: oxyCODONE HCL 5 MG TABLET PO PRN (03:28)
[2019-09-16] MEDS: SIMETHICONE 80 MG TAB.CHEW (FP) PO PRN (03:28)
[2019-09-16] MEDS: IBUPROFEN 600 MG TABLET (FP) PO PRN ×2 (03:28→11:17)
[2019-09-16 08:57] VITALS: BP 107/65; PULSE 80
[2019-09-16 09:07] LABS: BASO % 0.6 % (0-2.0); EOS % 2.9 % (0-4.5); HEMATOCRIT 33.6 % (32.4-45.2); HEMOGLOBIN 11.6 GM/dL (10.7-15.3); LYMPH % 21.4 % (8-40); MCH 32.1 pg (25.7-33.7); MCHC 34.5 g/dl (32.0-36.0); MEAN CELL VOLUME 93.2 fl (80-96); MEAN PLT VOLUME 7.3 fl (7.5-11.1); MONO % 7.8 % (3.8-10.2); NEUT % 67.3 % (42.8-82.8); PLATELET COUNT 235 K/MM3 (134-434); RBC 3.61 M/mm3 (3.60-5.2); RDW 14.4 % (11.6-15.6); WHITE BLOOD COUNT 7.3 K/mm3 (4.0-10.0)
[2019-09-16] MEDS: ENOXAPARIN NA (PORCINE) 40 MG/0.4 ML DISP.SYRIN SQ SCH (10:19)
[2019-09-16] MEDS: ACETAMINOPHEN 325 MG TABLET (FP) PO PRN (11:16)
--- NOTE | 2019-09-17 15:31 | PATH ---
Surgical Pathology Report Patient Name: WILLEM MCKAY [facility]. Rec. #: [id number] /Age/Gender: 1990 (Age: 29) / F Account: [id number] Location: [facility] OBS/[facility] Taken: 09/14/2019 Received: 09/14/2019 Reported: 09/17/2019 Physicians: Anson Panda M.D. Specimen(s) Received PLACENTA Clinical History , x2 Final Diagnosis PLACENTA: THIRD TRIMESTER PLACENTA. TRIVASCULAR CORD. MEMBRANES WITH NO DIAGNOSTIC ABNORMALITIES. Electronically Signed Ayana Page M.D. Gross Description The specimen is received fresh labeled placenta and is a 762 gram, 21.0 x 20.0 x 2.8 cm. placenta with attached membranes and umbilical cord. The attached membranes are noyola, translucent with focal opacities and display focal circumarginate insertion. The umbilical cord measures 55 cm. in length and averages 1.1 cm. in diameter. The cord inserts eccentrically, 4 cm. to the nearest margin. No true knots or strictures are identified. Cut surface of the umbilical cord reveals 3 vessels. The surface is birch-blue with minimal fibrin deposition and appropriate caliber vessels. The maternal surface is red-brown with focal defects. Sectioning reveals red-brown, spongy parenchyma. No lesions are identified. The[employer] Re[employer] sections are submitted in three cassettes as follows: 1- membrane rolls and umbilical cord; 2-3- full thickness sections of placenta. /09/14/2019 saudi/09/14/2019
== END 2019-09-16 14:02 | disposition home or self-care (01) | DRG 788 ==
LOC: JLDR 12:50 → J3W 17:24
PROVIDERS: ADMIT Obstetrics & Gynecology; ATTEND Obstetrics & Gynecology
PROC: 10D00Z1 Extraction of Products of Conception, Low, Open Approach (ICD-10-PCS; principal; 2019-09-13)
DX: O34.211 Maternal care for low transverse scar from previous cesarean delivery (principal); O99.214 Obesity complicating childbirth; O69.81X0 Labor and delivery complicated by cord around neck, without compression, not applicable or unspecified; Z3A.39 39 weeks gestation of pregnancy; Z37.0 Single live birth
CPT/HCPCS: 36415; 85025; 88307-TC

== ENCOUNTER 2021-07-28 08:00 | Inpatient (IN) | payer OTHER ==
[2021-07-28 09:46] VITALS: BMI 35.9
[2021-07-28] MEDS ORDERED: ELECTROLYTE-148 SOLN 1,000 ML IV SCH (10:00)
[2021-07-28] MEDS ORDERED: CITRIC ACID/SODIUM CITRATE 30 ML UNIT-DOSE CUP PO ONE (11:00)
[2021-07-28] MEDS ORDERED: ONDANSETRON 4 MG/2 ML VIAL IVPUSH PRN (11:15)
[2021-07-28] MEDS ORDERED: morphine SULFATE/PF 1 MG/2 ML (2cc Syringe - QUVA) ONE (11:53)
[2021-07-28] MEDS ORDERED: METHYLERGONOVINE MALEATE 0.2 MG/1 ML AMP IM PRN (13:07)
[2021-07-28 13:32] LABS: CORD BASE EXCESS -3.9 mmol/L (0-2); CORD HCO3 22.1 mmHg (20-29); CORD PCO2 43.7 mmHg (30-78); CORD pH 7.321 (7.14-7.44)
[2021-07-28 13:34] LABS: CORD HCO3 26.2 mmHg (20-29); CORD PCO2 58.3 mmHg (30-78)
[2021-07-28] MEDS: OXYTOCIN 20 UNITS in 0.9% NS 20 UNIT/1,000 ML INFUS.BAG IV SCH (14:00)
[2021-07-28] MEDS ORDERED: IBUPROFEN 800 MG/8 ML IJ IVPB PRN ×2 (16:45→17:52)
[2021-07-28] MEDS ORDERED: ceFAZolin 2 GRAM PREMIX BAG IVPB SCH (18:00)
[2021-07-28] MEDS: CEFAZOLIN 2 GM in SODIUM CHLORIDE 100 ML IVPB SCH (19:53)
[2021-07-29] MEDS ORDERED: oxyCODONE HCL 5 MG TABLET PO PRN ×2 (01:07)
[2021-07-29] MEDS: CEFAZOLIN 2 GM in SODIUM CHLORIDE 100 ML IVPB SCH ×2 (02:00→10:24)
[2021-07-29] MEDS: SIMETHICONE 80 MG TAB.CHEW (FP) PO PRN ×2 (02:55→14:55)
[2021-07-29] MEDS: IBUPROFEN 600 MG TABLET (FP) PO PRN ×2 (02:56→14:55)
[2021-07-29] MEDS: OXYTOCIN 20 UNITS in 0.9% NS 20 UNIT/1,000 ML INFUS.BAG IV SCH (05:00)
[2021-07-29 07:39] LABS: BASO % 0.5 % (0-2.0); EOS % 0.8 % (0-4.5); HEMATOCRIT 34.3 % (32.4-45.2); HEMOGLOBIN 11.6 GM/dL (10.7-15.3); LYMPH % 18.2 % (8-40); MCH 30.4 pg (25.7-33.7); MCHC 33.7 g/dl (32.0-36.0); MEAN CELL VOLUME 90.2 fl (80-96); MEAN PLT VOLUME 7.9 fl (7.5-11.1); MONO % 10.1 % (3.8-10.2); NEUT % 70.4 % (42.8-82.8); PLATELET COUNT 233 10^3/uL (134-434); RDW 15.5 % (11.6-15.6); WHITE BLOOD COUNT 8.3 K/mm3 (4.0-10.0)
[2021-07-29] MEDS: ENOXAPARIN NA (PORCINE) 40 MG/0.4 ML DISP.SYRIN SQ SCH (09:43)
[2021-07-29] MEDS ORDERED: FLU VACC QS2021-22(6MOS UP)/PF 60 MCG/0.5 ML SYRINGE IM ONE (12:00)
[2021-07-30] MEDS: IBUPROFEN 600 MG TABLET (FP) PO PRN ×2 (01:46→09:16)
[2021-07-30] MEDS: SIMETHICONE 80 MG TAB.CHEW (FP) PO PRN ×3 (01:47→19:11)
[2021-07-30] MEDS: ENOXAPARIN NA (PORCINE) 40 MG/0.4 ML DISP.SYRIN SQ SCH (09:16)
[2021-07-30] MEDS: ACETAMINOPHEN 325 MG TABLET (FP) PO PRN ×2 (11:52→19:11)
[2021-07-31] MEDS: ACETAMINOPHEN 325 MG TABLET (FP) PO PRN (02:37)
[2021-07-31] MEDS: SIMETHICONE 80 MG TAB.CHEW (FP) PO PRN (02:38)
[2021-07-31 06:57] LABS: BASO % 0.6 % (0-2.0); EOS % 5.1 % (0-4.5); HEMATOCRIT 33.2 % (32.4-45.2); HEMOGLOBIN 11.1 GM/dL (10.7-15.3); LYMPH % 24.1 % (8-40); MCH 30.5 pg (25.7-33.7); MCHC 33.4 g/dl (32.0-36.0); MEAN CELL VOLUME 91.3 fl (80-96); MEAN PLT VOLUME 7.5 fl (7.5-11.1); MONO % 7.7 % (3.8-10.2); NEUT % 62.5 % (42.8-82.8); PLATELET COUNT 264 10^3/uL (134-434); RBC 3.64 M/mm3 (3.60-5.2); RDW 15.7 % (11.6-15.6); WHITE BLOOD COUNT 7.1 K/mm3 (4.0-10.0)
[2021-07-31] MEDS: IBUPROFEN 600 MG TABLET (FP) PO PRN (08:48)
[2021-07-31] MEDS: BISACODYL 10 MG SUPP.RECT RC PRN ×2 (08:48→10:03)
[2021-07-31 09:46] VITALS: BP 109/66; PULSE 77; TEMP 97.8
[2021-07-31] MEDS: ENOXAPARIN NA (PORCINE) 40 MG/0.4 ML DISP.SYRIN SQ SCH (10:00)
== END 2021-07-31 14:30 | disposition home or self-care (01) | DRG 540 ==
LOC: JLDR 08:20 → J3W 14:05
PROVIDERS: ADMIT Obstetrics & Gynecology; ATTEND Obstetrics & Gynecology
PROC: 10D00Z1 Extraction of Products of Conception, Low, Open Approach (ICD-10-PCS; principal; 2021-07-28)
PROC: 0UL70ZZ Occlusion of Bilateral Fallopian Tubes, Open Approach (ICD-10-PCS; 2021-07-28)
DX: O34.211 Maternal care for low transverse scar from previous cesarean delivery (principal); Z30.2 Encounter for sterilization; Z3A.39 39 weeks gestation of pregnancy; Z37.0 Single live birth
CPT/HCPCS: 36415; 36600; 82803; 85025; 88302-TC; 88307-TC; 90686; G0008